=== PATIENT | male | born 1995 | race Two or more races ===

== ENCOUNTER 2021-04-03 19:34 | Emergency (ER) | payer MEDICAID, OTHER ==
[~2021-04-03] VITALS: Ht 177.8 cm; Wt 104.3 kg
[2021-04-03 22:30] VITALS: BP 127/78
== END 2021-04-03 22:58 | disposition home or self-care (01) ==
LOC: ER 19:36
DX: S01.81XD Laceration without foreign body of other part of head, subsequent encounter (principal); E66.9 Obesity, unspecified; Z68.33 Body mass index [BMI] 33.0-33.9, adult; X58.XXXD Exposure to other specified factors, subsequent encounter